=== PATIENT | female | born 1940 | race Caucasian/White ===

== ENCOUNTER 2024-07-31 19:15 | Emergency (ER) | payer MEDICARE, BC, SELFPAY | END 2024-07-31 19:35 | disposition short-term general hospital (02) | PROVIDERS: Emergency Provider Registered Nurse | DX: N89.8 Other specified noninflammatory disorders of vagina (principal); R80.9 Proteinuria, unspecified; E11.22 Type 2 diabetes mellitus with diabetic chronic kidney disease; N18.30 Chronic kidney disease, stage 3 unspecified; E03.9 Hypothyroidism, unspecified | CPT/HCPCS: 81003; 87086; 99213; G0463 ==